=== PATIENT | male | born 1985 | race Caucasian/White ===

== ENCOUNTER 2019-12-28 16:40 | Inpatient (IN) | payer MEDICAID ==
[2019-12-28] MEDS ORDERED: PROPOFOL 1,000 MG/100 ML INFUS..BTL IV PRN (16:53)
[2019-12-28] MEDS ORDERED: PROPOFOL 1,000 MG/100 ML INFUS..BTL IV ONE (16:57)
[2019-12-28 17:04] LABS: TOTAL CELLS COUNTED % (AUTO) 100 %
--- NOTE | 2019-12-28 17:12 | RADIOLOGY REPORT (SQ) ---
EXAM DESCRIPTION: CHEST SINGLE VIEW IMAGES COMPLETED DATE/TIME: 12/28/2019 5:03 pm REASON FOR STUDY: ams COMPARISON: None. EXAM PARAMETERS: NUMBER OF VIEWS: One view. TECHNIQUE: An AP view of the chest was obtained. RADIATION DOSE: NA LIMITATIONS: None. FINDINGS: LUNGS AND PLEURA: No consolidation, pleural effusion or pneumothorax. MEDIASTINUM AND HILAR STRUCTURES: No mediastinal or hilar contour abnormality. HEART AND VASCULAR STRUCTURES: The cardiac silhouette and pulmonary vasculature are within normal skag[place] its. BONES: No acute findings. HARDWARE: Has the patient been intubated ? If so then the tip of the endotracheal tube projects 6.1 c m above the yesica. OTHER: No other finding. IMPRESSION: No acute cardiopulmonary process. TECHNICAL DOCUMENTATION: JOB ID: [id number] 2010 [employer]- All Rights Reserved Reading location - IP/workstation name: [email or web address]
[2019-12-28 17:32] LABS: ALBUMIN 4.7 g/dL (3.5-5.0); ALKALINE PHOSPHATASE 43 U/L (38-126); ANION GAP 11 (5-19); ASPARTATE AMINO TRANSFERASE 26 U/L (17-59); BILIRUBIN,DIRECT 0.3 mg/dL (0.0-0.4); BILIRUBIN,TOTAL 3.2 mg/dL (0.2-1.3); BLOOD UREA NITROGEN 11 mg/dL (7-20); CARBON DIOXIDE 29 mmol/L (22-30); CHLORIDE 97 mmol/L (98-107); GLUCOSE 124 mg/dL (75-110); TOTAL PROTEIN 7.5 g/dL (6.3-8.2)
[2019-12-28 17:37] LABS: POTASSIUM 2.6 mmol/L (3.6-5.0)
[2019-12-28 17:38] LABS: ABSOLUTE LYMPHOCYTES (AUTO) 1.9 10^3/uL (0.5-4.7); ABSOLUTE MONOCYTES (AUTO) 0.7 10^3/uL (0.1-1.4); ABSOLUTE NEUT (AUTO) 5.5 10^3/uL (1.7-8.2); BASOPHILS % (AUTO) 0.4 % (0-2); EOSINOPHILS % (AUTO) 0.5 % (0-6); HEMATOCRIT 47.5 % (37.9-51.0); HEMOGLOBIN 16.8 g/dL (13.5-17.0); LYMPHOCYTES % (AUTO) 23.2 % (13-45); MEAN CORPUSCULAR HEMOGLOBIN 33.5 pg (27.0-33.4); MEAN CORPUSCULAR HGB CONC 35.3 g/dL (32.0-36.0); MEAN CORPUSCULAR VOLUME 95 fl (80-97); PLATELET COUNT 183 10^3/uL (150-450); RED BLOOD COUNT 5.01 10^6/uL (4.35-5.55); RED CELL DISTRIBUTION WIDTH 13.1 % (11.5-14.0); SEGMENTED NEUTROPHILS % (AUTO) 67.9 % (42-78); WHITE BLOOD COUNT 8.2 10^3/uL (4.0-10.5)
--- NOTE | 2019-12-28 17:53 | ER Document Report ---
ED General - General Chief Complaint: Unresponsive Stated Complaint: POSSIBLE SEIZURE Mode of Arrival: Medic Information source: Emergency Med Personnel - [facility] Notes: Patient arrives by paramedics. Patient is intubated and unable to contribute to history. Paramedics state they were called by neighbors for altered mental status. They state that they found the patient altered with seizure-like activity and unresponsive. They state they intubated the patient at the scene without problem and transferred the patient here. They state that they did give the patient rocuronium and ketamine twice in route. Patient symptoms were severe. They are constant. Nothing made them better or worse. That did appear to radiate throughout his body. They consisted mainly of tonic-clonic like activity and unresponsiveness. - Related Data Allergies/Adverse Reactions: No Known Allergies Allergy (Verified 12/28/19 17:13) Past Medical History - General Information source: Emergency Med Personnel - Social History Smoking Status: Never Smoker - none known Frequency of alcohol use: None - None known Drug Abuse: None - None known Family History: Reviewed & Not Pertinent Patient has homicidal ideation: No Review of Systems - Review of Systems -: Yes ROS unobtainable due to patient's medical condition - Review of symptoms are not obtainable due to altered mental status Physical Exam - Vital signs Vitals: Resp 12 12/28/19 16:41 Interpretation: Normal - General General appearance: Unresponsive In distress: None - HEENT Head: Normocephalic, Atraumatic Eyes: Normal Pupils: Fixed - Respiratory Respiratory status: No respiratory distress Chest status: Nontender Breath sounds: Normal Chest palpation: Normal - Cardiovascular Rhythm: Tachycardia Heart sounds: Normal auscultation Murmur: No - Abdominal Inspection: Normal Distension: No distension Bowel sounds: Normal Organomegaly: No organomegaly - Back Back: Normal - Extremities General upper extremity: Normal inspection, Normal color, Normal temperature General lower extremity: Normal inspection, Normal color, Normal temperature. No: Ayan's sign - Neurological Hadley Coma Scale Eye Opening: None Hadley Coma Scale Verbal: None Rach Coma Scale Motor: None Rach Coma Scale Total: 3 Sensory: Normal - Psychological Associated symptoms: Confused, Psychomotor depression - Skin Skin Temperature: Warm Skin Moisture: Dry Skin Color: Normal Course - Re-evaluation Re-evalutation: 12/28/19 17:52 Patient arrives intubated. He has had no significant purposeful movement here although he did receive rocuronium and ketamine before arrival. I have continued to sedate him with propofol. He has significantly depressed potassium which is being replaced IV. Patient chest x-ray shows the ETT tube to be in good position without evidence of infiltrate or other abnormality. The cause of the patient's unresponsiveness and possible seizure-like activity is unclear at this time. 12/28/19 18:11 I called and spoke with the patient's sister. She says the patient has never been admitted for this kind of thing before but he has had episodes of hyperventilating and becoming unresponsive with some seizure-like activity but has never gone to the hospital for it. She states that she was not present today when this happened but heard through the patient's landlord what it happened. She says the patient recently has been stressed and his girlfriend just broke up with him. She states however that he is not known to use any drugs and she does not believe he would have overdosed on any kind of medication. - Vital Signs Vital signs: Temp Pulse Resp BP Pulse Ox 97.8 F 99 12 135/97 H 100 12/28/19 17:13 12/28/19 17:13 12/28/19 18:01 12/28/19 18:00 12/28/19 18:01 - Laboratory Result Diagrams: 12/28/19 16:50 12/28/19 16:50 Laboratory results interpreted by me: 12/28/19 12/28/19 16:50 16:50 MCH 33.5 H Sodium 136.9 L Potassium 2.6 L* Chloride 97 L Glucose 124 H Total Bilirubin 3.2 H - Diagnostic Test Radiology reviewed: Image reviewed, Reports reviewed Critical Care Note - Critical Care Note Total time excluding time spent on procedures (mins): 60 Comments: 60 minutes of critical care time managing this unresponsive intubated patient. This was spent during multiple reassessments. No spent talking to family. I spent talking to consultants. It is spent reviewing labs and imaging. Discharge - Discharge Clinical Impression: Altered mental status Qualifiers: Altered mental status type: coma Coma depth: Hadley coma 3-8 Coma timing: in the field (EMT or ambulance) Qualified Code(s): R40.2431 - [place] coma scale score 3-8, in the field [EMT or ambulance] Condition: Critical Disposition: ADMITTED INPATIENT Admitting Provider: Alek (Internal Medicine Veterinary Technician) Unit Admitted: ICU
[2019-12-28] MEDS ORDERED: PROPOFOL INJ 200 MG/20 ML VIAL IV ONE ×3 (17:59→19:17)
--- NOTE | 2019-12-28 19:21 | RADIOLOGY REPORT (SQ) ---
EXAM DESCRIPTION: CT HEAD WITHOUT IMAGES COMPLETED DATE/TIME: 12/28/2019 7:06 pm REASON FOR STUDY: ams COMPARISON: None. TECHNIQUE: Axial images acquired through the brain without intravenous contrast. Images reviewed wi th bone, brain and subdural windows. Additional sagittal and coronal reconstructions were generated. Images stored on PACS. All CT scanners at this facility use dose modulation, iterative reconstruction, and/or weight based d osing when appropriate to reduce radiation dose to as low as reasonably achievable (ALARA). [facility]: Dose Right [facility]: CareDose [facility]: Dose Right [facility]: Teradose 4D [facility]: [place] RADIATION DOSE: CT Rad equipment meets quality standard of care and radiation dose reduction techniq ues were employed. CTDIvol: 53.2 mGy. DLP: 1097 mGy-cm. mGy. LIMITATIONS: None. FINDINGS: VENTRICLES: Normal size and contour. CEREBRUM: No masses. No hemorrhage. No midline shift. No evidence for acute infarction. Normal gra y/white matter differentiation. No areas of low density in the white matter. CEREBELLUM: No masses. No hemorrhage. No alteration of density. No evidence for acute infarction. EXTRAAXIAL SPACES: No fluid collections. No masses. ORBITS AND GLOBE: No intra- or extraconal masses. Normal contour of globe without masses. CALVARIUM: No fracture. PARANASAL SINUSES: No fluid or mucosal thickening. SOFT TISSUES: No mass or hematoma. OTHER: An endotracheal tube is present. IMPRESSION: NORMAL BRAIN CT WITHOUT CONTRAST. EVIDENCE OF ACUTE STROKE: NO. COMMENT: Quality ID # [id number]: Final reports with documentation of one or more dose reduction techniques (e.g., Automated exposure control, adjustment of the mA and/or kV according to patient size, use of iterative reconstruction technique) TECHNICAL DOCUMENTATION: JOB ID: [id number] 2010 [employer]- All Rights Reserved Reading location - IP/workstation name: [email or web address]
[2019-12-28] MEDS ORDERED: MIDAZOLAM 2 MG/2 ML INJ IV ONE ×2 (19:23)
[2019-12-28] MEDS ORDERED: NORMAL SALINE 1000 ML 1,000 ML IV PRN (19:35)
[2019-12-28] MEDS ORDERED: DEXMEDETOMIDINE IN 0.9 % NACL 400 MCG/100 ML RTUPB IV PRN (19:36)
[2019-12-28] MEDS ORDERED: DEXTROSE 40% GEL 15 GM TUBE PO PRN ×2 (19:37)
[2019-12-28] MEDS ORDERED: DEXTROSE 50%-WATER 25 GM/50 ML DISP.SYRIN IV PRN ×2 (19:37)
[2019-12-28] MEDS ORDERED: GLUCAGON,HUMAN RECOMB 1 MG INJ SUBCUT PRN (19:37)
[2019-12-28] MEDS: POTASSI CL 20 MEQ/50 ML RIDER 20 MEQ/50 ML RTUPB IV SCH ×2 (19:47→21:32)
[2019-12-28 19:57] LABS: INTERNATIONAL RATION (INR) 1.06; PROTHROMBIN TIME 13.8 SEC (11.4-15.4)
[2019-12-28 19:58] LABS: PARTIAL THROMBOPLASTIN TIME 26.6 SEC (23.5-35.8)
[2019-12-28 20:19] LABS: CREATINE KINASE 71 U/L (55-170); PHOSPHORUS 2.8 mg/dL (2.5-4.5)
[2019-12-28 20:23] LABS: ALCOHOL < 10 mg/dL (NONE DETECTED); SALICYLATE < 1.0 mg/dL (2.0-20.0)
[2019-12-28 21:25] LABS: URINE AMPHETAMINES SCREEN NEGATIVE; URINE BARBITURATES SCREEN NEGATIVE; URINE COCAINE SCREEN NEGATIVE; URINE METHADONE SCREEN NEGATIVE; URINE PHENCYCLIDINE SCREEN NEGATIVE
[2019-12-28 21:26] LABS: URINE BENZODIAZEPINES SCREEN UNCONFIRMED POSITIVE; URINE MARIJUANA (THC) SCREEN UNCONFIRMED POSITIVE
[2019-12-28 21:37] VITALS: BP 112/85
[2019-12-28] MEDS ORDERED: POTASSIUM CHLORIDE 10 MEQ TABLET.ER PO ONE (21:45)
[2019-12-28] MEDS ORDERED: FAMOTIDINE INJ/PF 20 MG/2 ML SDV IV SCH (22:00)
--- NOTE | 2019-12-29 05:37 | CRITICAL CARE ADMISSION REPORT ---
HPI Date:: 12/28/19 Time:: 20:00 Reason for ICU Reason:: encounter for weaning from mechanical ventilator, coma HPI: Royer Ayon is a 34 year-old male with a past medical history of a remote seizure in his early 20's for which he was never prescribed anti-epileptic m edication for whom his neighbors called EMS after finding Mr Ayon unresponsive with questionable seizure-like activity. He reportedly briefly received chest compressions from his friends per the patient as well as ED RN report. He was intubated in the field by EMS and brought to [facility], receiving Rocuronium and Ketamine twice en route. Since arrival to [facility], he has awakened with agitation for which the ED staff had to increase his Propofol. Upon my initial evaluation entering the room, I found the patient's ventilator to be alarming with the patient self-extubated with him asking me to help him. The Propofol infusion was immediately stopped, his respirations were unlabored with symmetrical chest wall expansion, SPO2 on room air is 98%. Corine and I stayed in the room monitoring Mr Ayon for 30 minutes obtaining his history/ROS for which I learned that he and his fiancee of six years recently broke up contributing to stress more so due to the fact that he had been a father figure to her little girl for which he is no longer being allowed to see/talk to her. He denied recently taking any illicit drugs due to stress, though admits to occasional marijuana use at baseline confirming we will find that on his urine toxicology. He takes no other medications other than melatonin at night for sleep. He denies suicidal/homicidal ideations or visual/auditory hallucinations. Mr Ayon informed me that he has only had one panic attack in his life and that was when his mother . 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 Denies any COVID sympatomatology or exposure to anyone with known COVID reporting he has [id number] and cleans his place every day to avoid acquiring COVID. I cleared his cervical collar by clinical exam after Propofol had metabolized for which he had no posterior cervical point tenderness to palpation, flexion, extension, lateral rotation as well as no paresthesias in extremities. Update: Patient is alert, oriented x4, and wanting to leave the hospital against medical advice. His head CT was negative for an acute intracranial process and the propofol has metabolized out of his system. I had an extensive conversation with Mr Ayon about the need to monitor him overnight to ensure he does not have a seizure as well as correct his Potassium level, for which he could then be discharged home in the morning if he experiences no medical setbacks. Mr Ayon understands the medical advice rendered, but insists he is leaving regardless and I have no reason to involuntarily hold him as he is oriented with no wishes to harm himself or others, nor does he have a head injury. He repeated everything I told him back to me. He has only received 20 mEq of IV Potassium, therefore, I asked that he take 40 mEq orally before leaving as well as confirmed that he will eat once he leaves [place] to which he agreed. Discussed the above with Dr Felipe. History obtained from:: Patient, medical record - Diagnosis/Plan (1) Coma Qualifiers: Coma depth: Rach coma 3-8 Coma timing: in the field (EMT or ambulance) Qualified Code(s): R40.2431 - [place] coma scale score 3-8, in the field [EMT or ambulance] Is this a current diagnosis for this admission?: Yes Plan: Resolved as patient extubated himself and is oriented x4, even recounting that his friends did chest compressions on him at the scene, which I did not know but confirmed with the ED RN. (2) On mechanically assisted ventilation Is this a current diagnosis for this admission?: Yes Plan: Resolved as patient self-extubated himself, is unlabored, with symmetrical respirations. (3) Seizure Is this a current diagnosis for this admission?: Yes Plan: Possible seizure-like activity on scene with no explanation as to why patient would experience one. Does not take nor is he prescribed anti-epileptic medication. His sodium and magnesium levels are non-contributory. (4) Hypokalemia Is this a current diagnosis for this admission?: Yes Plan: Received 20 mEq IV Potassium Chloride. Will administer 40 mEq of PO KCl to ensure his K+ level is >3. Patient states he will get something to eat immediately after departing [place] AMA. Past Medical History Cardiac Medical History: Reports: None Pulmonary Medical History: Reports: None EENT Medical History: Reports: None Neurological Medical History: Reports: Seizures Denies: Hemorrhagic CVA, Ischemic CVA, Migraine, Multiple Sclerosis Endocrine Medical History: Reports: None Renal/ Medical History: Reports: None Malignancy Medical History: Reports: None GI Medical History: Reports: None Musculoskeltal Medical History: Reports: None Skin Medical History: Reports: None Psychiatric Medical History: Reports: None Traumatic Medical History: Reports: None Hematology: Reports: None Infectious Medical History: Reports: None Past Surgical History Past Surgical History: Reports: None Social/Family History - Social History Lives with: Alone Smoking Status: Never Smoker - daily chewing tobacco abuse Hx Recreational Drug Use: Yes Drugs: Marijuana Hx Prescription Drug Abuse: No - Medication/Allergies Home Medications: No Home Medications 12/28/19 Allergies/Adverse Reactions: Penicillins Allergy (Unknown, Verified 12/28/19 20:24) Review of Systems Constitutional: ABSENT: chills, fatigue, fever(s), headache(s), night sweats, weakness Eyes: ABSENT: visual disturbances Ears: ABSENT: hearing changes Nose, Mouth, and Throat: ABSENT: headache(s), mouth pain, vertigo Cardiovascular: ABSENT: chest pain, dyspnea on exertion, edema, palpitations Respiratory: ABSENT: cough, dyspnea, sputum Gastrointestinal: ABSENT: abdominal pain, diarrhea, nausea, vomiting Genitourinary: ABSENT: difficulty urinating, dysuria, hematuria Musculoskeletal: ABSENT: back pain, deformity, joint swelling, muscle weakness Integumentary: ABSENT: diaphoresis, erythema, pruritus, rash Neurological: ABSENT: syncope, vertigo, weakness Psychiatric: ABSENT: anxiety, hallucinations, homidical ideation, suicidal ideation Endocrine: ABSENT: cold intolerance, heat intolerance, polydipsia, polyphagia, polyuria Hematologic/Lymphatic: ABSENT: easy bleeding, easy bruising, lymphadenopathy Allergic/Immunologic: ABSENT: seasonal rhinorrhea Physical Exam Vital Signs: Temp Pulse Resp BP Pulse Ox 97.8 F 99 20 135/97 H 100 12/28/19 17:13 12/28/19 17:13 12/28/19 20:59 12/28/19 18:00 12/28/19 20:59 Intake & Output 12/27/19 12/28/19 12/29/19 06:59 06:59 06:59 Intake Total 26 Balance 26 Weight 83.6 kg Weight/Height Weight 83.6 kg Height 6 ft General appearance: PRESENT: no acute distress, cooperative, thin, well- developed, well-nourished Head exam: PRESENT: atraumatic, normocephalic Eye exam: PRESENT: conjunctiva pink, EOMI, PERRLA Ear exam: PRESENT: normal external ear exam Mouth exam: PRESENT: moist, neck supple - with cervical collar in place Teeth exam: ABSENT: poor dentation Throat exam: ABSENT: post pharyngeal erythema Neck exam: PRESENT: full ROM. ABSENT: JVD, lymphadenopathy, tenderness, tracheal deviation Respiratory exam: PRESENT: clear to auscultation cecilio, symmetrical, unlabored. ABSENT: accessory muscle use Cardiovascular exam: PRESENT: RRR, +S1, +S2. ABSENT: gallop, rubs, systolic murmur Pulses: PRESENT: normal radial pulses, +2 pedal pulses bilateral Vascular exam: PRESENT: normal capillary refill GI/Abdominal exam: PRESENT: normal bowel sounds, soft. ABSENT: distended, guarding, Yip's sign, tenderness Rectal exam: PRESENT: deferred Gentrourinary exam: ABSENT: indwelling catheter Extremities exam: PRESENT: full ROM. ABSENT: calf tenderness, clubbing, joint swelling, pedal edema, tenderness Musculoskeletal exam: PRESENT: full ROM, normal inspection. ABSENT: deformity, tenderness Neurological exam: PRESENT: alert, awake, oriented to person, oriented to place, oriented to time, oriented to situation, CN II-XII grossly intact Psychiatric exam: PRESENT: appropriate affect, normal mood. ABSENT: homicidal ideation, manic, suicidal ideation Skin exam: PRESENT: dry, intact, normal color, warm. ABSENT: jaundice, rash Laboratory/Radiographs Laboratory Results: 12/28/19 16:50 12/28/19 16:50 12/28/19 12/28/19 12/28/19 16:50 16:50 16:50 WBC 8.2 RBC 5.01 Hgb 16.8 Hct 47.5 MCV 95 MCH 33.5 H MCHC 35.3 RDW 13.1 Plt Count 183 Seg Neutrophils % 67.9 Sodium 136.9 L Potassium 2.6 L* Chloride 97 L Carbon Dioxide 29 Anion Gap 11 BUN 11 Creatinine 0.64 Est GFR ( Amer) > 60 Glucose 124 H Calcium 9.0 Phosphorus 2.8 Magnesium 2.4 H Total Bilirubin 3.2 H AST 26 Alkaline Phosphatase 43 Total Protein 7.5 Albumin 4.7 Amylase Lipase TSH 12/28/19 12/28/19 16:50 16:50 WBC RBC Hgb Hct MCV MCH MCHC RDW Plt Count Seg Neutrophils % Sodium Potassium Chloride Carbon Dioxide Anion Gap BUN Creatinine Est GFR ( Amer) Glucose Calcium Phosphorus Magnesium Total Bilirubin AST Alkaline Phosphatase Total Protein Albumin Amylase 55 Lipase 46.2 TSH 0.47 12/28/19 16:50 Creatine Kinase 71 Impressions: Chest X-Ray 12/28/19 16:52 IMPRESSION: No acute cardiopulmonary process. Head CT 12/28/19 16:52 IMPRESSION: NORMAL BRAIN CT WITHOUT CONTRAST. EVIDENCE OF ACUTE STROKE: NO. All labs, radiographs, diagnostic studies and EKGs were personally reviewed: Yes In addition, reports of radiographic and diagnostic studies were read: Yes Critical Time Critical Time (minutes): 65 -: The care of a critically ill patient is dynamic. This note represents a static moment in the admission process. Orders and treatments may be given simultaneously and urgently, and time is not personal banking representative of the treatment process. This patient requires Critical Care secondary to life threatening organ or limb dysfunction. Without Critical Care services, the patient is at risk for increased mortality and morbidity.
[2019-12-29] MEDS ORDERED: ENOXAPARIN SODIUM INJ 40 MG/0.4 ML DISP.SYRIN SUBCUT SCH (10:00)
== END 2019-12-28 22:21 | disposition left against medical advice (07) | DRG 641 ==
LOC: ER 16:40 → EH 18:46
PROVIDERS: ADMIT Internal Medicine Critical Care Medicine; ATTEND Internal Medicine Critical Care Medicine
PROC: 5A1935Z Respiratory Ventilation, Less than 24 Consecutive Hours (ICD-10-PCS; principal; 2019-12-28)
DX: E87.6 Hypokalemia (principal); R41.82 Altered mental status, unspecified; R56.9 Unspecified convulsions; R40.2431 Glasgow coma scale score 3-8, in the field [EMT or ambulance]
CPT/HCPCS: 36415; 70450; 71045; 80053; 80307; 82150; 82550; 83690; 83735; 84100; 84443; 85025; 85610; 85730; 94002; 99291; J2250; J2704; J3480

== ENCOUNTER 2020-02-26 11:39 | Emergency (ER) | payer MEDICAID ==
[2020-02-26 11:47] VITALS: BP 124/71
[2020-02-26] MEDS ORDERED: NORMAL SALINE 1000 ML 1,000 ML IV ONE (12:13)
--- NOTE | 2020-02-26 12:18 | ER Document Report ---
ED Medical Screen (RME) - General Chief Complaint: syncopal Stated Complaint: WEAKNESS Time Seen by Provider: 02/26/20 12:08 Mode of Arrival: Medic Information source: Patient Notes: 35-year-old male presents to ED for complaint of syncopal episode after he got to work. He states he got to work feeling fine started working for about an hour and then felt very lightheaded weak and the next thing he knows he sat down in the car and then woke up in the EMS. He states he does not know what happened between when he sat down and when he woke up. He states he might of had a seizure about October or something. He is alert oriented at this time he stated he is feels better and wants to go home. I did explain to him that if he had a syncopal episode we do not know why he had the syncopal episode if he leaves he is leaving AGAINST MEDICAL ADVICE. I have informed him that we need to know what his electrolytes are and why he passed out at work. He states he does dip tobacco drinks on the weekends does not use any drugs. He states he does live alone. I have just spoken with the patient again. He states his brother now is going to come and stay with him he is going to leave AGAINST MEDICAL ADVICE I have reiterated several times that he could very well lay down and not wake up he could have electrolyte problems he can have cardiac problems I do not know why he passed out and he still states he is going home. - Related Data Allergies/Adverse Reactions: Penicillins Allergy (Unknown, Verified 12/28/19 20:24) shellfish derived Allergy (Verified 02/26/20 12:07) Past Medical History Neurological Medical History: Reports: Hx Seizures. Denies: Hx Migraine Physical Exam - Vital signs Vitals: Temp Pulse Resp BP Pulse Ox 98.5 F 58 L 16 124/71 97 02/26/20 11:44 02/26/20 11:44 02/26/20 11:44 02/26/20 11:44 02/26/20 11:44 Course - Vital Signs Vital signs: Temp Pulse Resp BP Pulse Ox 98.5 F 58 L 16 124/71 97 02/26/20 11:44 02/26/20 11:44 02/26/20 11:44 02/26/20 11:44 02/26/20 11:44 Doctor's Discharge - Discharge Clinical Impression: Syncopal episodes Qualifiers: Syncope type: unspecified Qualified Code(s): R55 - Syncope and collapse Disposition: AGAINST MEDICAL ADVICE
== END 2020-02-26 12:20 | disposition left against medical advice (07) ==
LOC: ER 11:39
DX: R55 Syncope and collapse (principal); R53.1 Weakness; Z88.0 Allergy status to penicillin; Z91.013 Allergy to seafood
CPT/HCPCS: 99284

== ENCOUNTER 2020-04-03 07:50 | Emergency (ER) | payer MEDICAID ==
[2020-04-03 08:25] LABS: ABSOLUTE EOSINOPHILS # (AUTO) 0.1 10^3/uL (0.0-0.6); ABSOLUTE LYMPHOCYTES (AUTO) 1.4 10^3/uL (0.5-4.7); ABSOLUTE MONOCYTES (AUTO) 0.5 10^3/uL (0.1-1.4); ABSOLUTE NEUT (AUTO) 4.1 10^3/uL (1.7-8.2); BASOPHILS % (AUTO) 0.4 % (0-2); EOSINOPHILS % (AUTO) 1.8 % (0-6); HEMATOCRIT 45.4 % (37.9-51.0); HEMOGLOBIN 16.1 g/dL (13.5-17.0); LYMPHOCYTES % (AUTO) 22.4 % (13-45); MEAN CORPUSCULAR HEMOGLOBIN 33.5 pg (27.0-33.4); MEAN CORPUSCULAR HGB CONC 35.3 g/dL (32.0-36.0); MEAN CORPUSCULAR VOLUME 95 fl (80-97); MONOCYTES % (AUTO) 8.5 % (3-13); PLATELET COUNT 184 10^3/uL (150-450); RED BLOOD COUNT 4.79 10^6/uL (4.35-5.55); RED CELL DISTRIBUTION WIDTH 12.9 % (11.5-14.0); SEGMENTED NEUTROPHILS % (AUTO) 66.9 % (42-78); TOTAL CELLS COUNTED % (AUTO) 100 %; WHITE BLOOD COUNT 6.1 10^3/uL (4.0-10.5)
[2020-04-03 08:46] LABS: ALBUMIN 4.4 g/dL (3.5-5.0); ALKALINE PHOSPHATASE 48 U/L (38-126); ANION GAP 8 (5-19); ASPARTATE AMINO TRANSFERASE 29 U/L (17-59); BILIRUBIN,DIRECT 0.1 mg/dL (0.0-0.4); BILIRUBIN,TOTAL 1.7 mg/dL (0.2-1.3); BLOOD UREA NITROGEN 11 mg/dL (7-20); CALCIUM 9.3 mg/dL (8.4-10.2); CARBON DIOXIDE 28 mmol/L (22-30); CHLORIDE 103 mmol/L (98-107); CREATINE KINASE 56 U/L (55-170); GLUCOSE 104 mg/dL (75-110); POTASSIUM 3.9 mmol/L (3.6-5.0); TOTAL PROTEIN 6.9 g/dL (6.3-8.2)
--- NOTE | 2020-04-03 08:58 | RADIOLOGY REPORT (SQ) ---
EXAM DESCRIPTION: CHEST SINGLE VIEW IMAGES COMPLETED DATE/TIME: 04/03/2020 8:41 am REASON FOR STUDY: chest pain COMPARISON: 12/28/2019 EXAM PARAMETERS: NUMBER OF VIEWS: One view. TECHNIQUE: Single frontal radiographic view of the chest acquired. RADIATION DOSE: NA LIMITATIONS: None. FINDINGS: LUNGS AND PLEURA: No opacities, masses or pneumothorax. No pleural effusion. MEDIASTINUM AND HILAR STRUCTURES: No masses. Contour normal. HEART AND VASCULAR STRUCTURES: Heart normal in size. Normal vasculature. BONES: No acute findings. HARDWARE: None in the chest. OTHER: No other significant finding. IMPRESSION: NO ACUTE RADIOGRAPHIC FINDING IN THE CHEST. TECHNICAL DOCUMENTATION: JOB ID: [id number] 2010 [employer]- All Rights Reserved Reading location - IP/workstation name: [email or web address]
[2020-04-03 09:04] LABS: CREATINE KINASE MB 0.68 ng/mL (<4.55)
[2020-04-03 09:10] LABS: TROPONIN I < 0.012 ng/mL
--- NOTE | 2020-04-03 10:09 | ER Document Report ---
ED Cardiac - General Chief Complaint: Chest Pain Stated Complaint: CHEST PAIN Time Seen by Provider: 04/03/20 09:29 Mode of Arrival: Ambulatory Information source: Patient - HPI Notes: Patient presents with chest pain. He states that it started approximate 4:30 in the morning and was left-sided. He states he had a hard time sleeping last night however was not because of the pain. He states the pain started while he was having trouble sleeping. He states he was on the way to work this morning and the pain was continuing and he fell asleep in the car. 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 He states his pain is now gone. It apparently was constant. It is moderate in intensity. It was sharp. It is on the left side of the chest and did not radiate. No significant shortness of breath. He states he has been doing increased physical work over the last couple of months. He has no previous cardiac issues. No significant past medical history of surgeries. He is not a smoker. He denies any family history. He had no trouble breathing. He was not sweaty or nauseous. - Related Data Allergies/Adverse Reactions: Penicillins Allergy (Unknown, Verified 12/28/19 20:24) shellfish derived Allergy (Verified 02/26/20 12:07) Past Medical History - General Information source: Patient - Social History Smoking Status: Never Smoker Chew tobacco use (# tins/day): Yes Frequency of alcohol use: None Drug Abuse: None Family History: Reviewed & Not Pertinent Neurological Medical History: Reports: Hx Seizures. Denies: Hx Migraine Review of Systems - Review of Systems Constitutional: denies: Chills, Fever Cardiovascular: Chest pain. denies: Palpitations Respiratory: denies: Cough, Short of breath -: Yes All other systems reviewed and negative Physical Exam - Vital signs Vitals: Temp Pulse Resp BP Pulse Ox 97.5 F 69 16 136/86 H 100 04/03/20 07:51 04/03/20 07:51 04/03/20 07:51 04/03/20 07:51 04/03/20 07:51 Interpretation: Normal - General General appearance: Appears well, Alert - HEENT Head: Normocephalic, Atraumatic Eyes: Normal Pupils: PERRL - Respiratory Respiratory status: No respiratory distress Chest status: Nontender Breath sounds: Normal Chest palpation: Normal - Cardiovascular Rhythm: Regular Heart sounds: Normal auscultation Murmur: No - Abdominal Inspection: Normal Distension: No distension Bowel sounds: Normal Tenderness: Nontender Organomegaly: No organomegaly - Back Back: Normal, Nontender - Extremities General upper extremity: Normal inspection, Nontender, Normal color, Normal ROM, Normal temperature General lower extremity: Normal inspection, Nontender, Normal color, Normal ROM, Normal temperature, Normal weight bearing. No: Ayan's sign - Neurological Neuro grossly intact: Yes Cognition: Normal Orientation: AAOx4 Rach Coma Scale Eye Opening: Spontaneous Rach Coma Scale Verbal: Oriented Franklin Coma Scale Motor: Obeys Commands Franklin Coma Scale Total: 15 Speech: Normal Motor strength normal: LUE, RUE, LLE, RLE Sensory: Normal - Psychological Associated symptoms: Normal affect, Normal mood - Skin Skin Temperature: Warm Skin Moisture: Dry Skin Color: Normal Course - Re-evaluation Re-evalutation: 04/03/20 10:07 Patient presents with chest pain. Heart score is 0. Patient work-up is unremarkable. - Vital Signs Vital signs: Temp Pulse Resp BP Pulse Ox 97.5 F 69 16 136/86 H 100 04/03/20 07:51 04/03/20 07:51 04/03/20 07:51 04/03/20 07:51 04/03/20 07:51 - Laboratory Result Diagrams: 04/03/20 08:10 04/03/20 08:10 Laboratory results interpreted by me: 04/03/20 04/03/20 08:10 08:10 MCH 33.5 H Total Bilirubin 1.7 H - Diagnostic Test Radiology reviewed: Image reviewed, Reports reviewed - EKG Interpretation by Sd EKG shows normal: Sinus rhythm Rate: Normal - 65 Rhythm: NSR [place]/QRS: No: Right axis deviation, Left axis deviation Discharge - Discharge Clinical Impression: Chest pain Qualifiers: Chest pain type: unspecified Qualified Code(s): R07.9 - Chest pain, unspecified Condition: Stable Disposition: HOME, SELF-CARE Instructions: Chest Pain of Unclear Cause ([facility]) Additional Instructions: Please call Dr. Wilson as soon as possible to arrange follow up. Forms: Return to Work Referrals: IVANIA WILSON MD [ACTIVE PROVISIONAL STAFF] - Follow up in 3-5 days
[2020-04-03 10:58] VITALS: BP 141/90
--- NOTE | 2020-04-03 12:32 | EKG REPORT ---
SEVERITY:- ABNORMAL ECG - SINUS RHYTHM PROBABLE LEFT ATRIAL ABNORMALITY LEFT VENTRICULAR HYPERTROPHY : Confirmed by: Darrian Sexton MD 03-Apr-2020 12:31:05
== END 2020-04-03 11:03 | disposition home or self-care (01) ==
LOC: ER 07:50
DX: R07.9 Chest pain, unspecified (principal); Z88.0 Allergy status to penicillin
CPT/HCPCS: 36415; 71045; 80053; 82550; 82553; 84484; 85025; 93005; 93010; 99285